=== PATIENT | female | born 2000 | race African-American/Black ===

== ENCOUNTER → 2025-05-26 | Outpatient (REF) | LOC: M LAB 12:29 | PROVIDERS: ATTEND Family Medicine | DX: Z01.89 Encounter for other specified special examinations (principal) ==

== ENCOUNTER → 2025-06-14 | Outpatient (CLI) | payer OTHER ==
[2025-06-14 18:27] LABS: PLATELET COUNT, AUTOMATED 240 10^3/uL (150-450)
[2025-06-14 18:33] LABS: GLUCOSE CHALLENGE TEST 1 HOUR 94 MG/DL (LESS THAN 140)
[2025-06-14 19:02] LABS: Trichomonas vaginalis (AMP) NOT DETECTED (NEGATIVE)
[2025-06-14 19:08] LABS: HIV 1&2 SCREEN NEGATIVE (NEGATIVE)
[2025-06-14 19:16] LABS: HEPATITIS C VIRUS ABY INDEX 0.04 INDEX (<0.8)
[2025-06-14 19:26] LABS: GC DNA AMPLIFICATION NEGATIVE (NEGATIVE)
== END ==
LOC: M PLALAB 13:54
PROVIDERS: ATTEND Nurse Practitioner Family
DX: Z34.80 Encounter for supervision of other normal pregnancy, unspecified trimester (principal)

== ENCOUNTER → 2025-07-28 | Outpatient (REF) | payer OTHER | LOC: M SFHCWAGY 10:13 | PROVIDERS: ATTEND Nurse Practitioner Family | DX: Z3A.36 36 weeks gestation of pregnancy (principal) ==

== ENCOUNTER 2025-08-23 07:42 | Inpatient (IN) | payer OTHER ==
[~2025-08-23] VITALS: Ht 152.4 cm; Wt 67.2 kg
[2025-08-23] MEDS ORDERED: PRENTAB9 PO (07:58)
[2025-08-23] MEDS ORDERED: PROB250C PO (07:58)
[2025-08-23] MEDS ORDERED: HOME MED LIST COMPLETE! XX SCH (08:00)
[2025-08-23 08:04] VITALS: BP 113/72
[2025-08-23] MEDS ORDERED: OXYTOCIN INJ 10UNITS/ML 1ML VIAL IM PRN (09:20)
[2025-08-23] MEDS ORDERED: LIDOCAINE 1% MDV 20 ML VIAL INFIL PRN (09:20)
[2025-08-23] MEDS ORDERED: OXYTOCIN DRIP 30 UNITS in IV 1 EA IV PRN (09:20)
[2025-08-23] MEDS ORDERED: CARBOPROST TROMETHAMINE 250 MCG/ML AMP IM PRN (09:20)
[2025-08-23] MEDS ORDERED: METHYLERGONOVINE MALEATE 0.2 MG/ML 1 ML VIAL IM PRN (09:20)
[2025-08-23] MEDS ORDERED: TRANEXAMIC ACID INJection 1,000 MG in NS 100 ML IV PRN (09:20)
[2025-08-23 09:59] LABS: PLATELET COUNT, AUTOMATED 220 10^3/uL (150-450)
[2025-08-23] MEDS: miSOPROStol 50 MCG 1/2 TABLET PO ONE (10:01)
[2025-08-23 10:02] VITALS: BP 115/65
[2025-08-23 10:52] LABS: HIV 1&2 SCREEN NEGATIVE (NEGATIVE)
[2025-08-23 11:00] LABS: HEPATITIS C VIRUS ABY INDEX < 0.02 INDEX (<0.8)
[2025-08-23 11:18] VITALS: BP 105/64
[2025-08-23 12:20] VITALS: BP 116/68
[2025-08-23 13:54] VITALS: BP 109/63
[2025-08-23] MEDS: miSOPROStol 50 MCG 1/2 TABLET PO SCH (14:14)
[2025-08-23 16:45] VITALS: BP 109/61
[2025-08-24] VITALS (22 sets, daily range): BP systolic 94–129; BP diastolic 52–82; TEMP 97; O2SAT 98–100
[2025-08-24] MEDS: BUTORPHANOL 2 MG/ML 1 ML VIAL IV ONE (03:26)
[2025-08-24] MEDS: OXYTOCIN DRIP 30 UNITS in IV 1 EA IV SCH ×2 (08:48→18:05)
[2025-08-24] MEDS: LR 1,000 ML IV ONE (09:00)
[2025-08-24] MEDS: LR 1,000 ML IV SCH ×2 (10:28→18:05)
[2025-08-24 15:21] LABS: PLATELET COUNT, AUTOMATED 237 10^3/uL (150-450)
[2025-08-24] MEDS ORDERED: OXYTOCIN 30UNITS IN 0.9% NaCl 500ML IV BAG IV ONE (16:26)
[2025-08-24] MEDS ORDERED: PHENYLephrine 500MCG 5ML (100MCG/ML) SYRINGE As Ordered ONE (16:27)
[2025-08-24] MEDS: BICITRA 30 ML SOLN UDC PO ONE (16:27)
[2025-08-24] MEDS: ceFAZolin SODIUM 2 GM in DEXTROSE 5% (D5W) ADV/MINI-BAG 50 ML IV ONE (16:27)
[2025-08-24] MEDS ORDERED: ONDANSETRON 4MG/2ML VIAL As Ordered ONE (16:29)
[2025-08-24] MEDS ORDERED: dexAMETHasone 4 MG/ML 1 ML VIAL As Ordered ONE (16:29)
[2025-08-24] MEDS ORDERED: ACETAMINOPHEN 1000MG/100ML IV BAG As Ordered ONE (16:30)
[2025-08-24] MEDS ORDERED: MORPHINE PRES-FREE INJ 10 MG/10 ML VIAL As Ordered ONE (16:31)
[2025-08-24] MEDS ORDERED: KETOROLAC 30 MG/ML 1 ML VIAL As Ordered ONE (16:34)
[2025-08-24 17:51] LABS: CORD GAS ABE A -1.7; CORD GAS HCO3 A 26.4 MMOL/L; CORD GAS O2 SAT A 48.2 %; CORD GAS PCO2 A 58.9 mmHg; CORD GAS PH A 7.269 UNITS; CORD GAS PO2 A 21.6 mmHg; CORD GAS SBC A 21.9 MMOL/L; CORD GAS TCO2 A 28.2 MMOL/L
[2025-08-24 17:52] LABS: CORD GAS ABE V -2.7; CORD GAS HCO3 V 23.8 MMOL/L; CORD GAS O2 SAT V 74.1 %; CORD GAS PCO2 V 47.8 mmHg; CORD GAS PH V 7.315 UNITS; CORD GAS PO2 V 30.5 mmHg; CORD GAS SBC V 21.7 MMOL/L; CORD GAS TCO2 V 25.3 MMOL/L
[2025-08-24] MEDS ORDERED: SIMETHICONE 80MG CHEW TAB PO PRN (18:05)
[2025-08-24] MEDS ORDERED: CALCIUM CARBONATE 500 MG CHEW U/D PO PRN (18:05)
[2025-08-24] MEDS ORDERED: RHOGAM 300MCG (1500IU) INJ IM SCH (18:05)
[2025-08-24] MEDS ORDERED: ACETAMINOPHEN 500 MG TAB PO PRN (18:05)
[2025-08-24] MEDS ORDERED: ANUSOL HC CREAM 30 GM TOP PRN (18:05)
[2025-08-24] MEDS ORDERED: COLA100C5 PO (18:20)
[2025-08-24] MEDS ORDERED: IBUP80TA PO (18:20)
[2025-08-24] MEDS ORDERED: PERC5TAB12 PO (18:21)
[2025-08-24] MEDS ORDERED: **NOTE PATIENT COMMENT** MISC XX SCH (18:40)
[2025-08-24] MEDS ORDERED: ONDANSETRON 4MG/2ML VIAL IV PRN (18:40)
[2025-08-24] MEDS: SLF 3 ML SYR IV SCH (18:40)
[2025-08-24] MEDS ORDERED: NALOXONE INJ 0.4 MG/1 ML VIAL IV PRN ×2 (18:40)
[2025-08-24] MEDS ORDERED: diphenhydrAMINE 50 MG/ML VIAL IV PRN (18:40)
[2025-08-24] MEDS: DOCUSATE SODIUM 100 MG CAPSULE PO SCH (21:00)
[2025-08-24] MEDS ORDERED: MORPHINE 4 MG/ML 1 ML VIAL IV PRN (21:15)
[2025-08-25] MEDS: KETOROLAC 30 MG/ML 1 ML VIAL IV SCH ×2 (00:17→13:51)
[2025-08-25 02:00] VITALS: O2SAT 98
[2025-08-25 08:19] LABS: PLATELET COUNT, AUTOMATED 212 10^3/uL (150-450)
[2025-08-25] MEDS: PRENATAL VITAMINS CHEWABLE TABLET PO SCH (09:00)
[2025-08-25 10:00] VITALS: BP 114/72; O2SAT 99
[2025-08-25] MEDS: FERROUS SULFATE 325 MG TAB PO SCH (11:06)
[2025-08-25 13:52] VITALS: BP 109/58; O2SAT 100
[2025-08-25 18:00] VITALS: BP 119/63; O2SAT 100
[2025-08-25] MEDS: IBUPROFEN 800 MG TAB PO SCH (21:50)
[2025-08-25 23:30] VITALS: BP 114/71; O2SAT 100
[2025-08-26] MEDS: PERCOCET 5MG/325MG TAB PO PRN ×2 (00:07→14:36)
[2025-08-26 02:00] VITALS: BP 106/55; O2SAT 98
[2025-08-26 06:00] VITALS: BP 126/77; O2SAT 98
[2025-08-26] MEDS ORDERED: MEASLES,MUMPS,RUBELLA VACCINE INJ (MMR-II) SC.IMMUN ONE (09:00)
== END 2025-08-26 15:25 | disposition home or self-care (01) | DRG 540 ==
LOC: M LDI 07:42 → M OBS 08-24 19:40
PROVIDERS: ADMIT Advanced Practice Midwife; ATTEND Obstetrics & Gynecology
PROC: 3E0P7GC Introduction of Other Therapeutic Substance into Female Reproductive, Via Natural or Artificial Opening (ICD-10-PCS; 2025-08-23)
PROC: 10D00Z1 Extraction of Products of Conception, Low, Open Approach (ICD-10-PCS; principal; 2025-08-24 16:30)
DX: O48.0 Post-term pregnancy (principal); O61.0 Failed medical induction of labor; Z3A.40 40 weeks gestation of pregnancy; Z37.0 Single live birth; O62.0 Primary inadequate contractions